=== PATIENT | female | born 1975 | race Caucasian/White ===

== ENCOUNTER 2016-11-19 11:33 | Emergency (ER) | payer MEDICAID ==
[~2016-11-19] VITALS: Ht 157.5 cm; Wt 91.0 kg
[2016-11-19 13:11] LABS: BASOPHILS % 0.5 % (0.0-2.0); EOSINOPHILS % 0.4 % (0.0-5.0); HEMATOCRIT. 37.5 % (36.0-48.0); HEMOGLOBIN. 12.9 g/dL (12.0-16.0); LYMPHOCYTES % 14.5 % (20.0-50.0); MEAN CORPUSCULAR HEMOGLOBIN 31.5 pg (28.0-32.0); MEAN CORPUSCULAR VOLUME 91.7 fL (81.0-99.0); MEAN PLATELET VOLUME 7.9 fl (7.4-10.4); NEUTROPHILS % 79.6 % (40.0-76.0); PLATELET 229 x1000/uL (130-400); RED BLOOD CELL COUNT 4.09 mill/uL (4.2-5.4); RED CELL DISTRIBUTION WIDTH 13.7 % (11.6-14.6)
[2016-11-19 13:17] LABS: CHLORIDE 106 mEq/L (98-107)
[2016-11-19 13:24] LABS: CARBON DIOXIDE 27 mEq/L (21-32)
[2016-11-19 15:09] VITALS: BP 131/60
== END 2016-11-19 15:12 | disposition home or self-care (01) ==
LOC: ER 12:32
DX: R55 Syncope and collapse (principal); R51 Headache; Z91.81 History of falling
CPT/HCPCS: 36415; 70450; 80053; 81025; 85025; 93005; 99285; Z7610